=== PATIENT | female | born 1940 | race Caucasian/White ===

== ENCOUNTER → 2021-02-03 | Day surgery (SDC) | payer MEDICARE, BC ==
[2021-01-27 14:53] LABS: BASOPHILS # (AUTO) 0.1 X10'3 (0-0.2); BASOPHILS % (AUTO) 0.8 % (0-1); EOSINOPHILS # (AUTO) 0.2 X10'3 (0-0.9); EOSINOPHILS % (AUTO) 3.7 % (0-6); LYMPHOCYTES % (AUTO) 30.9 % (21-51); MEAN CORPUSCULAR HEMOGLOBIN 29.8 PG (27.0-31.0); MEAN CORPUSCULAR HGB CONC 34.3 g/dL (33.0-36.5); MEAN CORPUSCULAR VOLUME 86.9 FL (78-98); MEAN PLATELET VOLUME 8.2 FL (7.4-10.4); MONOCYTES # (AUTO) 0.6 X10'3 (0-0.9); MONOCYTES % (AUTO) 8.5 % (2-12); NEUTROPHILS # (AUTO) 3.7 X10'3 (1.8-7.7); NEUTROPHILS % (AUTO) 56.1 % (42-75); PRE OP HEMATOCRIT 42.2 % (35.0-45.0); PRE OP HEMOGLOBIN 14.5 g/dL (12.0-16.0); PRE OP PLATELET COUNT 237 X10'3 (140-440); RED BLOOD COUNT 4.86 X10'6 (4.20-5.60)
[2021-01-27 15:09] LABS: ALBUMIN 3.9 G/DL (3.4-5.0); ALBUMIN/GLOBULIN RATIO 1.2 (1.1-1.5); ALKALINE PHOSPHATASE 56 IU/L (46-116); BLOOD UREA NITROGEN 11 MG/DL (7-18); BUN/CREATININE RATIO 11.8 (6.6-38.0); CHLORIDE 108 MMOL/L (99-107); CREATININE 0.93 MG/DL (0.40-0.90); PRE OP ALT 24 U/L (30-65); PRE OP ANION GAP 12 (8-16); PRE OP AST 11 U/L (10-37); PRE OP BILIRUB, TOTAL 0.5 MG/DL (0.0-1.0); PRE OP GLUCOSE 197 MG/DL (70-104); PRE OP POTASSIUM 3.9 MMOL/L (3.4-5.1); PRE OP SODIUM 145 MMOL/L (135-145); TOTAL CARBON DIOXIDE 25.5 MMOL/L (24-32); TOTAL PROTEIN 7.2 G/DL (6.4-8.2); eGFR 58 ML/MIN
[~2021-02-03] VITALS: Ht 165.1 cm; Wt 80.6 kg
[~2021-02-03] MED LIST: BIOT5000 PO; BUPIVAcaine/PF 2.5mg/ml (0.25%) 10ml vial ONE; CHOL500049 PO; CINN500C15 PO; FLAX10007 PO; GING550C4 PO; GLIM2TAB6 PO; GLUC-95 PO; METF-438 PO; MV-M1CAP15 PO; NIAC500C12; OMEP-50 PO; PRAS25CA PO; RED600CA2 PO; SELE200C PO; [UNRECOGNIZED DRUG - CODE] PO; [UNRECOGNIZED DRUG - OTHER] PO; [UNRECOGNIZED DRUG - OTHER] PO; cefazolin/dext.iso 2gm/100ml IV ONE; famotidine 20mg tablet PO ONE; fentaNYL/PF 50MCG/1 ML 2ML syringe ONE; meperidine/PF 25mg/ml syringe IV PRN; midazolam 1 mg/ML 2ml injection ONE; morphine 2 MG/ML inj. syringe IV PRN; morphine 4 MG/ML inj SYRINge IV PRN; ondansetron/PF 4mg/2ml inj IV PRN; potassium otc PO; proCHLORperazine 10 MG/2 ml inj IV PRN; ringers solution, lacted 1,000 ML IV SCH
[2021-02-03 07:48] VITALS: BP 135/70
[2021-02-03 07:49] VITALS: BP 135/70
[2021-02-03 08:01] VITALS: BP 151/74
--- NOTE | 2021-02-03 08:01 | NUR ---
Received from OR via , accompanied by Anesthesiologist DR CARDONA and report given by Anesthesiolgist. PT PRESENT WITH PIV RIGHT HAND 20G, DRESSING ON RIGHT HAND DRY AND INTACT. VSS. Addendum: 02/03/21 at 0807 by Noemi Posadas RN, RN Amended: Links added.
[2021-02-03 08:10] VITALS: BP 151/83
[2021-02-03 08:20] VITALS: BP 153/83
[2021-02-03 08:31] VITALS: BP 152/85
--- NOTE | 2021-02-03 08:31 | NUR ---
PACU DISCHARGE CRITERIA MET, REPORT GIVEN TO FLOOR. DENIES PAIN OR DISCOMFORT. PT IS STABLE AND ADEQUATELY RECOVERED FROM ANESTHESIA. PT HAS STABLE AIRWAY PATENCY, RESPIRATORY FUNCTION TO INCLUDE RESPIRATORY RATE AND O2 SAT. HEART RATE, BLOOD PRESSURE STABLE AND HYDRATION ADEQUATE. MENTAL STATUS IS APPROPRIATE. PAIN AND NAUSEA CONTROLLED. REFER TO PACU SPREADSHEET FOR VITAL SIGNS. Addendum: 02/03/21 at 0844 by Noemi Posadas RN, RN Amended: Links added.
== END | disposition home or self-care (01) ==
LOC: PAS 05:42
PROVIDERS: ATTEND Orthopaedic Surgery Hand Surgery
DX: G56.02 Carpal tunnel syndrome, left upper limb (principal); M19.90 Unspecified osteoarthritis, unspecified site; E11.9 Type 2 diabetes mellitus without complications; K21.9 Gastro-esophageal reflux disease without esophagitis; Z79.84 Long term (current) use of oral hypoglycemic drugs; Z79.899 Other long term (current) drug therapy; Z98.890 Other specified postprocedural states; Z98.49 Cataract extraction status, unspecified eye; Z91.040 Latex allergy status
CPT/HCPCS: 36415; 64721; 80053; 82948; 85025; 93005; J2250; J3010; J3490; A4215; J7120

== ENCOUNTER 2022-02-05 11:01 | Day surgery (SDC) | payer BC, MEDICARE ==
[~2022-02-05] VITALS: Ht 165.1 cm; Wt 79.5 kg
[~2022-02-05 11:01] MED LIST changes: -BUPIVAcaine/PF 2.5mg/ml (0.25%) 10ml vial ONE; -OMEP-50 PO; +OMEP20CA16 PO; -cefazolin/dext.iso 2gm/100ml IV ONE; -famotidine 20mg tablet PO ONE; -fentaNYL/PF 50MCG/1 ML 2ML syringe ONE; -meperidine/PF 25mg/ml syringe IV PRN; -midazolam 1 mg/ML 2ml injection ONE; -morphine 2 MG/ML inj. syringe IV PRN; -morphine 4 MG/ML inj SYRINge IV PRN; -ondansetron/PF 4mg/2ml inj IV PRN; -proCHLORperazine 10 MG/2 ml inj IV PRN; -ringers solution, lacted 1,000 ML IV SCH
[2022-02-05] MEDS ORDERED: LIDOcaine 1% 30ml preserv. free vial SQ STA (11:27)
[2022-02-05 11:49] VITALS: BP 99/62
[2022-02-05 13:30] VITALS: BP 121/69
[2022-02-05 13:52] VITALS: BP 121/69
== END 2022-02-05 13:52 | disposition home or self-care (01) ==
LOC: SSTAY O 11:01
PROVIDERS: ATTEND Radiology Vascular & Interventional Radiology
DX: R16.0 Hepatomegaly, not elsewhere classified (principal)
CPT/HCPCS: 20206; 76942; 88305

== ENCOUNTER 2024-12-09 14:59 | Inpatient (IN) | payer MEDICARE, BC ==
[~2024-12-09] VITALS: Ht 165.1 cm; Wt 79.5 kg
[~2024-12-09 14:59] MED LIST changes: -PRAS25CA PO; +PRAS25CA8 PO; -SELE200C PO
--- NOTE | 2024-12-09 15:12 | Physician Documentation ---
History of Present Illness ~ Stated Complaint: CP Time Seen by MD: 15:11 OK to notify your PCP?: Yes Source: patient, RN/MD, EMS, RN notes reviewed, EMS notes reviewed, old records Mode of Arrival: EMS Exam Limitations: no limitations HPI Navneet is an 84 year olf female who presents to the emergency department via EMS from [facility] due to a syncopal episodes she had been experiencing. HPI from the clinic: Jodi, an 84 year old female with a history of diabetes, presents to the clinic with pain and shortness of breath that began this morning. She also reports intermittent issues with syncope. The patient describes her episodes where she stands up, passes out for a second, then regains consciousness. Her chest pain and heaviness has been coming and going since this morning. She reports feeling overall unwell for the last week but denies any active chest pain or heaviness at the time of presentation. The patient has not experienced nausea, vomiting, or reduced urinary output. She also denies any fevers or dysuria. Upon arrival at the clinic, the patient was given 324 milligrams of chewable aspirin. She had not taken any aspirin earlier in the day. Blood pressure measurements showed a variance between arms with the left arm reading 154/79 and the right arm 134/80. However, the patient denied any radiating pain or severe symptoms. Despite her current symptoms, the patient described feeling overall healthy for her age. Medication Reconciliation Allergies: Coded Allergies: latex (Verified Allergy, Unknown, 02/02/21) Scheduled Biotin (Biotin), 1 TAB PO TID, (Reported) Cholecalciferol (Vitamin D3) (Vitamin D3), 1,000 MCG PO DAILY, (Reported) Cinnamon Bark (Cinnamon), Unknown Dose PO DAILY, (Reported) Flaxseed (Flaxseed Oil), 1 CAP PO DAILY, (Reported) Irma Root (Irma Root), 3 TAB PO DAILY, (Reported) Glimepiride (Glimepiride), 1 TAB PO DAILY, (Reported) Glucosamine HCl/Chondr Valladares A Na (Cidaflex Tablet), Unknown Dose PO DAILY, (Reported) L.acidop,Rebel,Lac,Rha/B.lac,Dontrell (Advanced Probiotic Capsule), 1 TAB PO DAILY, (Re ported) Metformin HCl (Metformin HCl), 1 TAB PO BID, (Reported) Niacin* (Niacin Timed Release*), 300 MG DAILY, (Reported) Omeprazole (Omeprazole), 1 CAP PO DAILY, (Reported) Prasterone (Dhea) (Dhea), Unknown Dose PO DAILY, (Reported) Red Yeast Rice (Red Yeast Rice), Unknown Dose PO DAILY, (Reported) [foccus factor], 3 TAB PO DAILY, (Reported) [potassium otc], 1 TAB PO DAILY, (Reported) Miscellaneous Medications Ascorbic Acid (Vitamin C With Jayde Hips), 3 TAB PO, (Reported) Discontinued Medications Mv-Mn/FA/Vit K/Lycop/Lut/Coq10 (Daily Multivitamin Capsule), 1 CAP PO DAILY, (Reported) Discontinued Reason: patient no longer taking Past Medical History Past Medical History: Diabetes, Osteoarthritis, Anxiety Review of Systems All Other Systems at this time: Reviewed and Negative ROS As stated above in the HPI, otherwise all systems are reviewed and negative. Physical Exam Vital Signs: RN Vital Signs have been reviewed: Yes Pulse Oximetry Reflects: adequate oxygenation Physical Exam General: The patient is well developed, well nourished, nontoxic appearing and is in no acute distress. Skin: [place], warm and dry with no rashes. HEENT: Head was normocephalic and atraumatic. Eyes - pupils equal, round, reactive to light and accommodation. Extraocular movements were intact. Conjunctivae were nonicteric. Ears - bilateral tympanic membranes were normal. The mouth and oropharynx were clear with moist mucous membranes. There were no pharyngeal exudates or erythema. Neck: Supple and nontender. There was no jugular venous distention, lymphadenopathy, thyromegaly or masses. Chest: Clear to auscultation bilaterally without wheezes, rales or rhonchi. No accessory muscle use. No dullness to percussion. Heart: Rate regular and rhythmic. S1, S2. No murmurs. Palpation of the chest wall was normal. No rubs or thrills. Abdomen: Soft, nontender and nondistended. Positive bowel sounds. No guarding or rebound. No hepatosplenomegaly or palpable masses. Extremities: No cyanosis, clubbing or edema. The patient moves all extremities. Pulses were equal and symmetric. Neurologic: Cranial nerves II-XII were intact. Sensation was intact to light touch throughout. Motor strength was 5/5 in all four extremities. Deep tendon reflexes were intact in both upper and lower extremities. Psychologic: The patient was oriented to person, place and time. The patient demonstrated appropriate judgement and insight. Progress Progress Note 1721: The case was discussed with the hospitalist who was informed on the patients case and kindly agreed to admit them to the hospital. Results/Orders Reviewed/noted all lab results: Yes Results/Orders Orders - YAZMIN MELISSA MD Chest,Single View (12/09/24 15:13) Monitor (12/09/24 15:13) Oxygen (12/09/24 15:13) Saline Lock (12/09/24 15:13) Electrocardiogram (12/09/24 15:13) Cult Urine + [address] (12/09/24 16:48) Completed Orders - YAZMIN MELISSA MD Cbc/Diff (12/09/24 15:13) MG (12/09/24 15:13) Pt Inr (12/09/24 15:13) PTT (12/09/24 15:13) PBNP (12/09/24 15:13) Chest,Single View (12/09/24 15:13) Nitroglycerin 0.2mg/Hour Patch (Nitro-Du (12/09/24 15:15) Electrocardiogram (12/09/24 15:13) Hs Troponin I W Calculations (12/09/24 15:13) Hs Troponin I W Calculations (12/09/24 18:13) CMP (12/09/24 15:13) Ua W/Microscopic, Cult If Ind (12/09/24 16:08) Hgb A1c (12/09/24 15:25) TSH (12/09/24 15:25) Medications Received in ER Medications (Trade) Dose Ordered Sig/Ector Route PRN Reason Start Time Stop Time Status Last Admin Dose Admin (Nitro-Dur 0.2mg/ hour Patch) 1 patch ONCE ONCE TD 12/09/24 15:15 12/09/24 15:16 DC 12/09/24 15:49 1 PATCH Vital Signs 12/09/24 12/09/24 15:14 15:23 Temp 97.6 Pulse 69 Resp 20 B/P (MAP) 158/97 Pulse Ox 100 O2 Flow Rate 4.0 Laboratory Tests Test 12/09/24 15:25 12/09/24 16:08 White Blood Count 6.7 Red Blood Count 5.13 Hemoglobin 15.0 Hematocrit 44.4 Mean Corpuscular Volume 86.5 Mean Corpuscular Hemoglobin 29.1 Mean Corpuscular Hemoglobin Concent 33.7 Red Cell Distribution Width 13.5 Platelet Count 232 Mean Platelet Volume 8.4 Neutrophils (%) (Auto) 62.3 Lymphocytes (%) (Auto) 24.7 Monocytes (%) (Auto) 7.6 Eosinophils (%) (Auto) 4.3 Basophils (%) (Auto) 1.1 H Neutrophils # (Auto) 4.2 Lymphocytes # (Auto) 1.7 Monocytes # (Auto) 0.5 Eosinophils # (Auto) 0.3 Basophils # (Auto) 0.1 CBC Comment Prothrombin Time 10.6 INR International Normalized Ratio 1.0 Activated Partial Thromboplast Time 25 Coagulation Comments Sodium Level 144 Potassium Level 3.6 Chloride Level 107 Carbon Dioxide Level 26.5 Anion Gap 11 Blood Urea Nitrogen 10 Creatinine 0.83 Estimated GFR/1.73 m2 65 BUN/Creatinine Ratio 12.0 Glucose Level 144 H Hemoglobin A1c 6.4 H Calcium Level 9.5 Magnesium Level 2.2 Total Bilirubin 0.6 Aspartate Amino Transf (AST/SGOT) 12 Alanine Aminotransferase (ALT/SGPT) 28 Alkaline Phosphatase 63 Troponin I High Sensitivity 7 Pro-B-Type Natriuretic Peptide 116 Total Protein 7.5 Albumin 4.3 Globulin 3.2 Albumin/Globulin Ratio 1.3 Thyroid Stimulating Hormone (TSH) 1.92 Chemistry Comments Urine Specimen Description Cln catch midstream Urine Color Yellow Urine Clarity Cloudy Urine pH 6.0 Urine Specific [place] <=1.005 Urine Protein Negative Urine Glucose (UA) Negative Urine Ketones Negative Urine Occult Blood Trace-intact Urine Nitrite Negative Urine Bilirubin Negative Urine Urobilinogen 0.2 Urine Leukocyte Esterase Moderate H Urine RBC 0-2 Urine WBC 10-20 H Urine WBC Clumps Few Urine Squamous Epithelial Cells Few Urine Bacteria 4+ Urine Culture Indicated Indicated Volume Urine Centrifuged 10 ml Urine Comment Microbiology Date/Time Source Procedure Growth Status 12/09/24 16:48 Urine Clean Catch Midstream Urine Culture - Preliminary Culture received. Resulted Re-Evaluation Re-Evaluation : Re-Evaluation: Improved Progress Patient was seen and examined. Patient is given reassurance. The patient was transferred from a clinic in [facility] because she was having episodes of syncope questionable EKG with a delta wave concern for WPW. Patient also has not been complaining of chest pain until today patient received an aspirin in her symptoms resolved. Patient denies any PND orthopnea denies any exercise intolerance as of late. However patient now had chest pain today so her symptoms seemed to be worsening. Patient was then transferred to our facility for cardiac evaluation. EKG was reassuring but a questionable delta wave in lead two. Otherwise EKG was reassuring CBC was within normal limits no anemia no leukocytosis chemistry was also reassuring with a slight elevated glucose level of 144. Hemoglobin a one C6.4 otherwise chemistry LFTs troponins are all within normal limits including TSH. However urinalysis did show infection with a specific gravity of 1.005 with moderate leukocyte esterase, RBCs 0-2 WBCs 10- 20 with few epithelial cells and WBC clumps with 4+ bacteria. Patient was then given antibiotics but for her initial presentation she received nitroglycerin to her chest wall patient already had aspirin prior to arrival by EMS. Later I contacted the hospitalist for further workup and care both for the urinary tract infection as well as her cardiac symptoms. Continuous leak patcher interpretation shows normal sinus rhythm heart rate 60s, no ectopy, normal, my interpretation. Pulse oximetry monitor interpretation shows normal oxygenation 98% room air, normal, my interpretation. EKG/XRAY/CT/US/VASC/MRI EKG : Additional Comment [facility] Test Date: 2024-12-09 Test Time: 15:17:31 Pat Name: SHAHAB BURGOS Department: EMERGENCY ROOM Room: Gender: F Knee Bolter: PM : 1940 Requested By: YAZMIN MELISSA Order Number: [id number] Reading MD: Dr. Yazmin Melissa Measurements Intervals [place] Rate: 68 P: 38 NV: 180 QRS: -59 QRSD: 104 T: 56 QT: 451 QTc: 480 Interpretive Statements Sinus rhythm Left anterior fascicular block Abnormal R-wave progression, early transition Electronically Signed On 12-09-2024 16:26:[address] Yazmin Melissa Please click the below link to view image of tracing. EKG Date and Time:12/09/24 1517 Electronically Signed by: YAZMIN MELISSA MD Date and Time: 12/09/24 1626 Chest X-Ray : Additional Comments EXAM: DI CHEST,SINGLE VIEW HISTORY: CHEST PAIN COMPARISON: None TECHNIQUE: Portable upright AP views of the chest were performed. FINDINGS: No pneumothorax, consolidative infiltrates, or pulmonary edema. The heart is borderline enlarged. There is thoracic spondylosis and mild dextroscoliosis. There are calcifications of the bilateral rotator cuff tendons near the insertion. IMPRESSION: No acute intrathoracic process. Electronically Signed by:BREANNA MEZA MD Date & Time: 12/09/24 154 Dictated by: BREANNA MEZA MD Dictation date and time: 12/09/24 1538 Heart Score: Heart Score Response (Comments) Value History Highly Suspicious [address]-Deviation 2 Age 45-64 1 Risk Factors 1 or 2 risk factors 1 Troponin Normal limit 0 Total 6 Medical Decision Making Additional info obtained from: old records Differential Dx:Considerations: Include: anemia, CVA, dehydration, electrolyte disorder, encephalopathy, hypoglycemia, hypovolemia, labyrinthitis, Meniere's disease, myocardial infarction, pulmonary embolus, TIA, vasovagal, VBI, vertigo central, vertigo peripheral, vestibular neuronitis, other Departure Disposition: ADMITTED INPATIENT Admitted to Inpatient Unit: yes, to hospitalist Admission Level of Care: PCU with Tele Impression: Primary Impression: Syncope Qualified Codes: R55 - Syncope and collapse Additional Impressions: Unstable angina UTI (urinary tract infection) Qualified Codes: N30.00 - Acute cystitis without hematuria Condition: Guarded Referrals: NO PRIMARY CARE PROVIDER (PCP) Education Educated: Patient Educated regarding: diagnosis, treatment, prognosis, need for follow up Signature Scribe Signature: Scribed for Yazmin Melissa MD by Lencho Chang . 12/09/24 15:24 Attestation: The note accurately reflects work and decisions made by me.Yazmin Melissa MD 12/09/24 15:12 YAZMIN MELISSA MD December 09, 2024 15:12 LENCHO URIOSTEGUI December 09, 2024 15:24
--- NOTE | 2024-12-09 15:19 | ELECTROCARDIOGRAPH REPORT ---
[facility] Test Date: 2024-12-09 Test Time: 15:17:31 Pat Name: SHAHAB BURGOS Department: EMERGENCY ROOM [id number] Room: Gender: F Vb Developer: PM : 1940 Requested By: YAZMIN SMITH Order Number: [id number] Reading MD: Dr. Yazmin Smith Measurements Intervals [place] Rate: 68 P: 38 NC: 180 QRS: -59 QRSD: 104 T: 56 QT: 451 QTc: 480 Interpretive Statements Sinus rhythm Left anterior fascicular block Abnormal R-wave progression, early transition Electronically Signed On 12-09-2024 16:26:[address] Yazmin Smith Please click the below link to view image of tracing.
[2024-12-09 15:39] LABS: BASOPHILS # (AUTO) 0.1 X10'3 (0-0.2); BASOPHILS % (AUTO) 1.1 % (0-1); EOSINOPHILS # (AUTO) 0.3 X10'3 (0-0.9); EOSINOPHILS % (AUTO) 4.3 % (0-6); HEMATOCRIT 44.4 % (35.0-45.0); LYMPHOCYTES # (AUTO) 1.7 X10'3 (1.1-4.8); LYMPHOCYTES % (AUTO) 24.7 % (21-51); MEAN CORPUSCULAR HEMOGLOBIN 29.1 PG (27.0-31.0); MEAN CORPUSCULAR HGB CONC 33.7 g/dL (33.0-36.5); MEAN CORPUSCULAR VOLUME 86.5 FL (78-98); MEAN PLATELET VOLUME 8.4 FL (7.4-10.4); MONOCYTES # (AUTO) 0.5 X10'3 (0-0.9); MONOCYTES % (AUTO) 7.6 % (2-12); NEUTROPHILS # (AUTO) 4.2 X10'3 (1.8-7.7); NEUTROPHILS % (AUTO) 62.3 % (42-75); PLATELET COUNT 232 X10'3 (140-440); RED BLOOD COUNT 5.13 X10'6 (4.20-5.60); RED CELL DISTRIBUTION WIDTH 13.5 % (11.5-14.5); WHITE BLOOD COUNT 6.7 X10'3 (4.5-11.0)
[2024-12-09] MEDS: nitroGLYCERIN 0.2mg/hour patch TD ONE (15:49)
--- NOTE | 2024-12-09 15:50 | RADIOLOGY REPORT ---
EXAM: DI CHEST,SINGLE VIEW HISTORY: CHEST PAIN COMPARISON: None TECHNIQUE: Portable upright AP views of the chest were performed. FINDINGS: No pneumothorax, consolidative infiltrates, or pulmonary edema. The heart is borderline enlarged. The re is thoracic spondylosis and mild dextroscoliosis. There are calcifications of the bilateral rotato r cuff tendons near the insertion. IMPRESSION: No acute intrathoracic process.
[2024-12-09 15:52] LABS: APTT 25 SECONDS (22-32); PROTHROMBIN TIME 10.6 SECONDS (9.0-12.0)
[2024-12-09 16:05] LABS: GLUCOSE 144 MG/DL (70-104)
[2024-12-09 16:06] LABS: ALANINE AMINOTRANSFERASE 28 U/L (12-78); ALBUMIN 4.3 G/DL (3.4-5.0); ALBUMIN/GLOBULIN RATIO 1.3 (1.1-1.5); ALKALINE PHOSPHATASE 63 IU/L (46-116); ANION GAP 11 (8-16); ASPARTATE AMINO TRANSFERASE 12 U/L (10-37); BILIRUBIN,TOTAL 0.6 MG/DL (0.1-1.0); BLOOD UREA NITROGEN 10 MG/DL (7-18); CALCIUM 9.5 MG/DL (8.5-10.1); CHLORIDE 107 MMOL/L (99-107); CREATININE 0.83 MG/DL (0.40-0.90); MAGNESIUM 2.2 MG/DL (1.5-2.4); POTASSIUM 3.6 MMOL/L (3.5-5.1); PRO BRAIN NATRIURETIC PEPTIDE 116 PG/ML (0-450); SODIUM 144 MMOL/L (135-145); TOTAL CARBON DIOXIDE 26.5 MMOL/L (24-32); TOTAL PROTEIN 7.5 G/DL (6.4-8.2); eCRCL 45 ML/MIN; eGFR 65 ML/MIN
[2024-12-09 16:26] LABS: BILIRUBIN,URINE NEGATIVE (Neg); CLARITY,URINE CLOUDY (Clear); COLOR,URINE YELLOW (Yellow); GLUCOSE, URINE NEGATIVE (Neg); KETONES,URINE NEGATIVE (Neg); LEUKOCYTE ESTERASE ,URINE MODERATE (Neg); OCCULT BLOOD,URINE TRACE-INTACT (Neg); PROTEIN,URINE NEGATIVE (Neg); UROBILINOGEN,URINE 0.2 E.U/dL (0.2-1.0)
[2024-12-09 16:42] LABS: NITRITES, URINE NEGATIVE (Neg); UA COLLECTION TYPE CLN CATCH MIDSTREAM
[2024-12-09 16:47] LABS: BACTERIA,URINE 4+ /HPF (Neg); RBC,URINE 0-2 /HPF (0-2); SQUAMOUS EPITHELIAL CELL,UR FEW /LPF (FEW); WBC CLUMPS,URINE FEW /HPF (NEGATIVE)
--- NOTE | 2024-12-09 17:04 | HISTORY AND PHYSICAL ---
History & Physical Providers to CC ~ History of Present Illness Allergies: Coded Allergies: latex (Verified Allergy, Unknown, 02/02/21) Home Medications Home Medications Active Reported [potassium otc] 1 Tab PO DAILY Advanced Probiotic Capsule (L.acidop,Rebel,Lac,Rha/B.lac,Dontrell) 625 Mg Capsule 1 Tab PO DAILY Vitamin C With Jayde Hips (Ascorbic Acid) 250 Mg Tablet 3 Tab PO [foccus factor] 3 Tab PO DAILY Dhea (Prasterone (Dhea)) Unknown Strength Capsule Unknown Dose PO DAILY Cinnamon (Cinnamon Bark) Unknown Strength Capsule Unknown Dose PO DAILY Irma Root 550 Mg Capsule 3 Tab PO DAILY Red Yeast Rice Unknown Strength Capsule Unknown Dose PO DAILY Flaxseed Oil (Flaxseed) 1,000 Mg Capsule 1 Cap PO DAILY Vitamin D3 (Cholecalciferol (Vitamin D3)) 1,250 Mcg Capsule 1,000 Mcg PO DAILY Niacin Timed Release* (Niacin) 500 Mg Capsule 300 Mg DAILY Cidaflex Tablet (Glucosamine HCl/Chondr Valladares A Na) Unknown Strength Tablet Unknown Dose PO DAILY Biotin 5,000 Mcg Tab.rapdis 1 Tab PO TID Metformin HCl 1,000 Mg Tablet 1 Tab PO BID Omeprazole 20 Mg Capsule.dr 1 Cap PO DAILY Glimepiride 2 Mg Tablet 1 Tab PO DAILY Exam Vitals: Vital Signs Date Time Temp Pulse Resp B/P (MAP) Pulse Ox O2 Delivery O2 Flow Rate FiO2 12/09/24 15:23 12/09/24 15:14 97.6 69 20 100 4.0 Diagnostic Data Last Recorded Lab Results: 12/09/24 1525 12/09/24 1525 Diagnostic Data: Laboratory Tests Test 12/09/24 15:25 Prothrombin Time 10.6 SECONDS (9.0-12.0) INR International Normalized Ratio 1.0 INR Activated Partial Thromboplast Time 25 SECONDS (22-32) Coagulation Comments WOODY OTERO MD December 09, 2024 17:04
[2024-12-09] MEDS ORDERED: potassium Cl 40MEQ/1/2NS 520ml 520 ML IV PRN (17:50)
[2024-12-09] MEDS ORDERED: magnesium Cl slow-release 64mg tablet PO PRN (17:50)
[2024-12-09] MEDS ORDERED: ondansetron/PF 4mg/2ml inj IV PRN (17:50)
[2024-12-09] MEDS ORDERED: magnesium sulf-water 4G/100mL 100 ML IV PRN (17:50)
[2024-12-09] MEDS ORDERED: magnesium hydroxide 30ml (MOM) UD suspension PO PRN (17:50)
[2024-12-09] MEDS ORDERED: magnesium sulf-water 2g/50mL 50 ML IV PRN (17:50)
[2024-12-09] MEDS ORDERED: acetaminophen 325mg tablet PO PRN (17:50)
[2024-12-09] MEDS ORDERED: potassium Cl 20 mEq SR tablet PO PRN ×2 (17:50)
[2024-12-09] MEDS ORDERED: HYDROcodone/acetaminophen 5mg/325mg tablet PO PRN (17:50)
[2024-12-09] MEDS ORDERED: mag hydrox/Alum hydrox/simeth 30ml oral suspension PO PRN (17:50)
[2024-12-09] MEDS ORDERED: morphine 2 MG/ML inj. syringe IV PRN (17:50)
--- NOTE | 2024-12-09 17:59 | HISTORY AND PHYSICAL-Residence ---
History & Physical Providers to CC Resident Creating Document: TERE PATTERSON, RES CC: MINI SANTOYO MD ~ History of Present Illness Primary Medical Doctor: ESTELLE MCCORMICK Reason for Admit\Complaint: Chest pain, dizzy spells History of Present Illness An 84-year-old female with past medical history of type 2 DM presented to the ED with chest pain, dizzy spells and weakness over the last two weeks. Patient states that this morning she started to have substernal chest pain with a severity of 7/10, sharp in character, no radiation, no increase in chest pain with inspiration. Patient went to yoga and could not do her exercise, felt weak and therefore went to the emergency department. This chest pain has been on and off, does not vary with exertion or rest patient denies associated diaphoresis, shortness of breath, palpitations. Patient also had dizziness described as a black out when she stands up since one week, feels like the room is spinning around her, not associated with nausea vomitings, hearing loss, imbalance or headaches. Patient denies loss of consciousness or falls. Patient denies lower abdominal pain, burning micturition, increased frequency of urination. Allergies: Coded Allergies: latex (Verified Allergy, Unknown, 02/02/21) Home Medications Home Medications Active Reported [potassium otc] 1 Tab PO DAILY Advanced Probiotic Capsule (L.acidop,Rebel,Lac,Rha/B.lac,Dontrell) 625 Mg Capsule 1 Tab PO DAILY Vitamin C With Jayde Hips (Ascorbic Acid) 250 Mg Tablet 3 Tab PO [foccus factor] 3 Tab PO DAILY Dhea (Prasterone (Dhea)) Unknown Strength Capsule Unknown Dose PO DAILY Cinnamon (Cinnamon Bark) Unknown Strength Capsule Unknown Dose PO DAILY Irma Root 550 Mg Capsule 3 Tab PO DAILY Red Yeast Rice Unknown Strength Capsule Unknown Dose PO DAILY Flaxseed Oil (Flaxseed) 1,000 Mg Capsule 1 Cap PO DAILY Vitamin D3 (Cholecalciferol (Vitamin D3)) 1,250 Mcg Capsule 1,000 Mcg PO DAILY Niacin Timed Release* (Niacin) 500 Mg Capsule 300 Mg DAILY Cidaflex Tablet (Glucosamine HCl/Chondr Valladares A Na) Unknown Strength Tablet Unknown Dose PO DAILY Biotin 5,000 Mcg Tab.rapdis 1 Tab PO TID Metformin HCl 1,000 Mg Tablet 1 Tab PO BID Omeprazole 20 Mg Capsule.dr 1 Cap PO DAILY Glimepiride 2 Mg Tablet 1 Tab PO DAILY Past Medical History Past Medical History Type 2 DM Hypothyroidism Past Surgical History Surgical History Comment Appendectomy Tonsillectomy 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 Estelle Proctor (cash application representative) Does not smoke, consume alcohol, marijuana, illicit drugs. Lives at home by herself, uses cane to move around ROS ROS All systems reviewed in full, negative except for the pertinent positives mentioned in the HPI Exam Vitals: Vital Signs Date Time Temp Pulse Resp B/P (MAP) Pulse Ox O2 Delivery O2 Flow Rate FiO2 12/09/24 15:23 12/09/24 15:14 97.6 69 20 100 4.0 General: General: Alert, awake, oriented, not in acute distress HEENT: PERRLA, EOMI, no icterus, pallor, lymphadenopathy, carotid bruit Respiratory system: Bilateral vesicular breath sounds heard, no adventitious breath sounds CVS: S1-S2 heard, no murmurs/rubs/gallop GI: Soft, nontender, no organomegaly, no guarding/rigidity, bowel sounds present Neuro: No focal neurological deficits present Extremities: No edema cyanosis clubbing Musculoskeletal: No deformities Skin: Warm and dry Diagnostic Data Last Recorded Lab Results: 12/09/24 1525 12/09/24 1525 Diagnostic Data: Laboratory Tests Test 12/09/24 15:25 Prothrombin Time 10.6 SECONDS (9.0-12.0) INR International Normalized Ratio 1.0 INR Activated Partial Thromboplast Time 25 SECONDS (22-32) Coagulation Comments Advance Care Planning Advanced Care plannin - 30 Minutes (I spent 20 minutes discussing various resuscitative measures and the patient decided to be full code) Additional Plan Assessment: An 84-year-old female with past medical history of type 2 DM presented to the ED with on and off chest pain, dizzy spells and weakness. Patient is admitted for the evaluation and management of unstable angina, syncope/dizzy spells, UTI. Plan: Chest pain Possible unstable angina ACS, rule out Zzuxj-Tonnsacms-Vvliy syndrome, ruled out HEART score: 4 EKG: Sinus rhythm, left axis deviation, delta waves Negative troponinsy Patient started on aspirin 81 mg Follow up with echo, lipid panel Lexiscan in a.m. We will consult Cardiology in a.m. Syncope, under evaluation Dizzy spells Follow up with orthostatic vitals, CT head Continue to monitor telemetry UTI Urinalysis positive for leukocyte esterase Rocephin 1 g day 07/28 Follow up with urine cultures Type 2 DM Follow up with the A1c Low-dose sliding scale insulin Hypothyroidism Status post partial thyroidectomy Follow up with TSH Not on any home meds Code status: Full code Diet: 75 g carb controlled diet DVT prophylaxis: Heparin Disposition: Admit to neuro, Lexiscan in a.m. Tere Patterson MD Internal Medicine, PGY 1 Date of Service: December 09, 2024 Billing Provider: MINI SANTOYO MD, SIVA, RES December 09, 2024 17:59
[2024-12-09] MEDS ORDERED: aminophylline 250mg/10ml inj. IV PRN (18:05)
[2024-12-09] MEDS ORDERED: metoprolol tartrate 1mg/ml inj IV PRN (18:05)
[2024-12-09] MEDS ORDERED: nitroGLYCERIN 0.4mg SUBLingual tab SL PRN (18:05)
[2024-12-09] MEDS: PERFLUTREN PROTEIN-A MICROSPHR (Optison) 0.22 MG/ML 3ML VIAL IV ONE (18:06)
[2024-12-09] MEDS ORDERED: DEXTROSE 15 GM of carb/4 tabs (each vial/BOTTLE has 4 tablets) PO PRN ×2 (18:10)
[2024-12-09] MEDS ORDERED: dextrose 50%-water 50ml dispensing syringe IV PRN ×2 (18:10)
[2024-12-09] MEDS ORDERED: glucagon, human recombinant 1mg kit SUBCUT PRN (18:10)
[2024-12-09 18:24] LABS: THYROID STIMULATING HORMONE 1.92 ulU/ml (0.34-4.50)
[2024-12-09 18:33] LABS: HEMOGLOBIN A1C 6.4 % (4.5-6.2)
--- NOTE | 2024-12-09 19:06 | RADIOLOGY REPORT ---
EXAM: CT CT HEAD INDICATION: Syncope EXAM DATE: 12/09/2024 06:41 PM COMPARISON: None TECHNIQUE: CT of the head without intravenous contrast. Radiation Dose Information: CTDI volume is 62.68 mGy. Dose-length product is 1119.66 mGy*cm FINDINGS: There is no evidence of acute intracranial hemorrhage, extra-axial collection, mass effect, midline s hift, herniation or hydrocephalus. The ventricles, sulci and cisterns are age appropriate. The gale-w alonzo differentiation is intact. The visualized paranasal sinuses and mastoid air cells are clear. Dinh ateral hyperostosis frontalis interna. The surrounding soft tissues and osseous structures are unrema rkable. IMPRESSION: 1. No evidence of acute intracranial hemorrhage, mass effect or hydrocephalus.
[2024-12-09] MEDS: docusate sod 100mg capsule PO SCH (20:00)
[2024-12-09] MEDS: K and/or MAG REPLACEMENT MC SCH (20:00)
[2024-12-09] MEDS: INSULIN LISPRO 100 UNIT/ML INSULN.PEN MULTI-DOSE SQ SCH (21:00)
[2024-12-09] MEDS: CefTRIAXone 2gm/D5W 50ml BAG 50 ML IV ONE (21:29)
[2024-12-09] MEDS: heparin, porcine 5000 units/ml vial SQ SCH (21:33)
[2024-12-09 22:00] VITALS: BP 165/78; PULSE 83; RESP 16; TEMP 97.6
[2024-12-09 22:30] VITALS: BP_SYST 150; BP_SYST 159; BP_SYST 173; BP_DIAS 75; BP_DIAS 86; PULSE 107; PULSE 110
[2024-12-10] VITALS (13 sets, daily range): BP systolic 108–168; BP diastolic 56–108; PULSE 61–95; RESP 14–18; TEMP 97.1–98.9; O2SAT 96–98
[2024-12-10 04:55] LABS: BASOPHILS # (AUTO) 0.1 X10'3 (0-0.2); BASOPHILS % (AUTO) 1.2 % (0-1); EOSINOPHILS # (AUTO) 0.4 X10'3 (0-0.9); HEMOGLOBIN 13.4 g/dl (12.0-16.0); LYMPHOCYTES # (AUTO) 2.1 X10'3 (1.1-4.8); LYMPHOCYTES % (AUTO) 30.7 % (21-51); MEAN CORPUSCULAR HEMOGLOBIN 29.1 PG (27.0-31.0); MEAN CORPUSCULAR HGB CONC 33.5 g/dL (33.0-36.5); MEAN CORPUSCULAR VOLUME 86.8 FL (78-98); MEAN PLATELET VOLUME 8.2 FL (7.4-10.4); MONOCYTES # (AUTO) 0.7 X10'3 (0-0.9); MONOCYTES % (AUTO) 9.9 % (2-12); NEUTROPHILS # (AUTO) 3.6 X10'3 (1.8-7.7); NEUTROPHILS % (AUTO) 52.2 % (42-75); PLATELET COUNT 226 X10'3 (140-440); RED BLOOD COUNT 4.61 X10'6 (4.20-5.60); RED CELL DISTRIBUTION WIDTH 13.9 % (11.5-14.5); WHITE BLOOD COUNT 6.8 X10'3 (4.5-11.0)
[2024-12-10 05:18] LABS: ALBUMIN 3.6 G/DL (3.4-5.0); ANION GAP 8 (8-16); BLOOD UREA NITROGEN 11 MG/DL (7-18); BUN/CREATININE RATIO 12.6 (10.0-20.0); CHLORIDE 108 MMOL/L (99-107); CHOL/HDL RATIO 2.8 (0.00-4.99); CHOLESTEROL 144 MG/DL (0-200); CREATININE 0.87 MG/DL (0.40-0.90); GLUCOSE 149 MG/DL (70-104); HDL CHOLESTEROL 52 MG/DL (35-60); LDL CHOLESTEROL 78 MG/DL (50-100); MAGNESIUM 2.1 MG/DL (1.5-2.4); POTASSIUM 4.1 MMOL/L (3.5-5.1); SODIUM 144 MMOL/L (135-145); TOTAL CARBON DIOXIDE 27.6 MMOL/L (24-32); TRIGLYCERIDES 99 MG/DL (20-135); eCRCL 43 ML/MIN; eGFR 62 ML/MIN
--- NOTE | 2024-12-10 07:13 | ELECTROCARDIOGRAPH REPORT ---
[facility] Test Date: 2024-12-10 Test Time: 07:08:59 Pat Name: SHAHAB BURGOS Department: ORTHO 4S Room: ORTHO [facility] B Gender: F Physiatrist: Noemi Freeman : 1940 Requested By: TERE OLSEN Order Number: [id number] Reading MD: Dr. MISSY Alatorre Measurements Intervals [place] Rate: 69 P: -4 TN: 176 QRS: -55 QRSD: 90 T: 11 QT: 400 QTc: 429 Interpretive Statements Sinus rhythm Left anterior fascicular block Abnormal R-wave progression, early transition Borderline T abnormalities, inferior leads Electronically Signed On 12-10-2024 19:47:[address] MISSY Alatorre Please click the below link to view image of tracing.
[2024-12-10] MEDS ORDERED: aminophylline 500mg/20ml vial ONE (09:03)
[2024-12-10] MEDS ORDERED: aminophylline 500mg/20ml vial IV PRN (09:04)
[2024-12-10] MEDS: regadenoson 0.4mg/5ml syringe IV PRN (09:16)
[2024-12-10] MEDS: aspirin 81mg, enteric-coated 1 TAB TABLET.DR PO SCH (10:17)
[2024-12-10] MEDS: CefTRIAXone/D5W-Rocephin 1gm 50 ML IV SCH (10:42)
[2024-12-10] MEDS: normal saline 1000ml 1,000 ML IV SCH (12:40)
--- NOTE | 2024-12-10 13:34 | RADIOLOGY REPORT ---
Reason for study/Clinical History: Chest pain Comparison Study: None Myocardial Perfusion Study with SPECT Technique: The patient received an intravenous injection of 8.2 mCi of technetium-99m Sestamibi whi dusty at rest. After a short delay, SPECT tomographic images of the heart were obtained. The patient jerrell levine went to the stress lab where they received an intravenous Lexiscan utilizing standard protocol. 33.4 mCi of technetium-99m Sestamibi was injected intravenously immediately after the start of the infusion. Gated SPECT tomographic images of the heart were acquired and processed. Findings: Rotating planar images show no significant attenuation artifact. The left ventricular size is within normal limits. Stress tomographic images demonstrate normal perfusion. Resting tomographic images demonstrate a similar pattern. Gated portion of the study shows normal wall motion and myocardial thickening. The left ventricular ejection fraction is 71%. (normal greater than 50%) Impression: Normal left ventricular size, wall motion, and function, without evidence of infarction or of myocard ium at ischemic risk. The left ventricular ejection fraction is 71%.
[2024-12-10] MEDS ORDERED: iohexol 350MG/ML 100ml bottle IV ONE (13:35)
[2024-12-10] MEDS: meclizine 12.5mg tablet PO SCH (14:07)
--- NOTE | 2024-12-10 15:18 | CONSULTATION REPORT ---
History of Present Illness Providers to CC CC: AMITA MCCORMICK REGISTERED NURSES; TOÑO CAMPBELL MD ~ Reason for Admit\Admit Dx: CARDIOLOGY CONSULTATION Refering MD: Hospitalist service History of Present Illness This is a 84-year-old female who presented secondary to chest pain. Patient has a past medical history that is significant for diabetes type 2 reports under good control, hyperlipidemia, thyroid disease after partial parathyroidectomy. She presented with left-sided chest pain described as sharp. Patient able to pinpoint the pain to her left chest with one finger. No associated shortness for breath, diaphoresis. She reports overall feeling puny and fatigued. She states that her thyroid dysfunction workup has been pending and her referral to Endocrinology has also been pending. She reports intermittent dizziness and is being worked up for vertigo. She reports during yoga she felt increasing fatigue so she laid down. Thinks she may have fell in asleep but people around her were concerned that she had a syncopal episode. Allergies: Coded Allergies: latex (Verified Allergy, Unknown, 02/02/21) Home Medications Home Medications Active Reported [potassium otc] 1 Tab PO DAILY Advanced Probiotic Capsule (L.acidop,Rebel,Lac,Rha/B.lac,Dontrell) 625 Mg Capsule 1 Tab PO DAILY Vitamin C With Jayde Hips (Ascorbic Acid) 250 Mg Tablet 3 Tab PO [foccus factor] 3 Tab PO DAILY Dhea (Prasterone (Dhea)) Unknown Strength Capsule Unknown Dose PO DAILY Cinnamon (Cinnamon Bark) Unknown Strength Capsule Unknown Dose PO DAILY Irma Root 550 Mg Capsule 3 Tab PO DAILY Red Yeast Rice Unknown Strength Capsule Unknown Dose PO DAILY Flaxseed Oil (Flaxseed) 1,000 Mg Capsule 1 Cap PO DAILY Vitamin D3 (Cholecalciferol (Vitamin D3)) 1,250 Mcg Capsule 1,000 Mcg PO DAILY Niacin Timed Release* (Niacin) 500 Mg Capsule 300 Mg DAILY Cidaflex Tablet (Glucosamine HCl/Chondr Valladares A Na) Unknown Strength Tablet Unknown Dose PO DAILY Biotin 5,000 Mcg Tab.rapdis 1 Tab PO TID Metformin HCl 1,000 Mg Tablet 1 Tab PO BID Omeprazole 20 Mg Capsule. 1 Cap PO DAILY Glimepiride 2 Mg Tablet 1 Tab PO DAILY Past Medical History Medical History Comment Diabetes mellitus type 2 Hyperlipidemia Thyroid dysfunction Past Surgical History Surgical History Comment Tonsillectomy Appendectomy Orthopedic Left carpal tunnel Cataracts Partial thyroid Past Social History Social History Comment No smoking. No recreational drugs. Retired. Exercises by doing yoga. Physical Exam Last Vital Signs Recorded: RN Vital Signs have been reviewed: Yes, Temperature: 97.1, Source: Oral, Heart Rate: 68, Respiratory Rate: 14, BP: 144/75, Pulse Oximetry: 97, Weight: 79.550 Physical Exam General: Awake, alert, oriented. No apparent distress Neck: Supple. Normal range of motion. No JVD. No carotid bruit. Respiratory: Lungs are clear to auscultation bilaterally. No respiratory distress. Chest: Normal shape and size. No accessory muscle use. Cardiovascular: Regular rate and rhythm. S1-S2. No murmur, gallop, rub. Gastrointestinal: Abdomen is soft. Nontender to palpation. Bowel sounds present. Extremities: No lower extremity edema, cyanosis or clubbing. Neurologic: Alert and oriented x4. Nonfocal Psychiatric: Normal mood and affect. Skin: Normal color. Warm and dry. Review of Systems ROS Patient complains of chest pain, dizziness, fatigue. Furthermore, complains of dry skin, hair falling out and brittle nails. Otherwise, review of systems negative except specifically documented in HPI. Results EKG EKG Sinus rhythm with left anterior fascicular block. Left axis deviation. Poor R- wave progression. Echocardiogram Echocardiogram Preliminary echocardiogram with preserved LVEF and no wall motion abnormalities. Cardiac Stress Test Cardiac Stress Test Ordering Physician: TERE OLSEN Exam: NM ALBERTO SCAN Reason for study/Clinical History: Chest pain Comparison Study: None Myocardial Perfusion Study with SPECT Technique: The patient received an intravenous injection of 8.2 mCi of technetium-99m Sestamibi while at rest. After a short delay, SPECT tomographic images of the heart were obtained. The patient then went to the stress lab where they received an intravenous Lexiscan utilizing standard protocol. 33.4 mCi of technetium-99m Sestamibi was injected intravenously immediately after the start of the infusion. Gated SPECT tomographic images of the heart were acquired and processed. Findings: Rotating planar images show no significant attenuation artifact. The left ventricular size is within normal limits. Stress tomographic images demonstrate normal perfusion. Resting tomographic images demonstrate a similar pattern. Gated portion of the study shows normal wall motion and myocardial thickening. The left ventricular ejection fraction is 71%. (normal greater than 50%) Impression: Normal left ventricular size, wall motion, and function, without evidence of infarction or of myocardium at ischemic risk. The left ventricular ejection fraction is 71%. Electronically Signed by:ARMANDO SWARTZ MD Date & Time: 12/10/24 1331 Diagram Lab Result Diagram: 12/10/24 0447 12/10/24 0447 Assessment/Plan Additional Plan This is an 84-year-old female who presented secondary to chest pain. The following is her problem list: Chest pain EKG with nonspecific changes similar to previous Echocardiogram normal Stress test normal High sensitivity troponins normal --suspect musculoskeletal etiology. Recommend further evaluation for noncardiac causes of chest pain. Diabetes mellitus type 2 Hemoglobin A1c 6.4 On metformin as an outpatient. Fatigue Recommend she follow up with her primary care provider with regards to possible thyroid dysfunction. Question of syncope Intermittent dizziness Orthostatic vital signs are negative Patient suspects vertigo -can follow up for an outpatient event monitor. Elevated blood pressure without diagnosis of hypertension --recommend outpatient follow up Supervising Supervising Physician: NELI Hemphill NP December 10, 2024 15:18
--- NOTE | 2024-12-10 16:14 | CARDIOLOGY REPORT ---
APPROVED REPORT EXAM: Comprehensive 2D, Doppler, and color-flow Echocardiogram. Patient Location: [facility] Blood Pressure: 108/56 mmHg Heart Rate: 72 bpm Rhythm: Sinus Indications Coronary Artery Disease Chest Pain Diabetes NEON SIGN WORKER: Elenita Proctor MD Previous Echo Unavailable 2D Dimensions LA Diam2.8 cm IVSd 1.1 (0.7-1.1cm) LVDd 3.4 cm PWd 1.0 (0.7-1.1cm) IVSs 1.7 (0.8-1.2cm) LVDs 2.2 (2.5-4.0cm) PWs 1.5 (0.8-1.2cm) LVOT Diameter 2.06 (1.8-2.4cm) LVEF(%) 66.2 (>50%) Ao Asc Diam.3.29 cm IVC 14.68 mmFS (%) 35.6 % SV 31.6 ml CO 2.4 L/min M-Mode Dimensions Left Atrium(MM) 3.26 (2.5-4.0cm) Aortic Root 3.37 (2.2-3.7cm) Aortic Cusp Exc 1.65 (1.5-2.0cm) MV EPSS 0.8 (<0.5cm) Aortic Valve AoV Peak Siva. 203.7 cm/s AoV VTI 35.4 cm AO Peak GR. 16.6 mmHg AO Mean GR. 9 mmHg LVOT VTI 21.45 cm LVOT Peak Siva. 110.5 cm/s JAIMEE(VTI)/BSA 2.03 cm2/m2 JAIMEE (VTI) 2.03 cm2 Mitral Valve MV E Velocity 75.3 cm/s MV Peak Gr. 3 mmHg MV DECEL TIME 344 ms MV A Velocity 115.5 cm/s MV PHT 68 ms E/A Ratio 0.7 MVA (PHT) 3.24 cm2 MV VMax79.3 cm/s TDI Lateral E' P. V12.94 cm/s E/Lateral E' 5.8 Tricuspid Valve TR P. Velocity 270 cm/s RAP ESTIMATE 10 mmHg TR Peak Gr. 29 mmHg RVSP 39 mmHg LEFT VENTRICLE Normal LV size and wall thickness. Overall systolic function is normal. LVEF is 65-70%. RIGHT VENTRICLE RV is normal size and function. ATRIA The left atrium size is normal. AORTIC VALVE Trileaflet AV appears mildly sclerotic without stenosis. No insufficiency. MITRAL VALVE Mild mitral annular calcification without stenosis. Trace regurgitation. TRICUSPID VALVE The tricuspid valve is normal in structure with mild regurgitation. PULMONIC VALVE The pulmonary valve is normal in structure without insufficiency. GREAT VESSELS The aortic root is normal in size. The ascending aorta is normal in size. The IVC is normal in size a nd collapses >50% with inspiration. PERICARDIUM Normal pericardium. No effusion. Other Information Study Quality: Adequate Conclusion Normal LV size and wall thickness. Overall systolic function is normal. LVEF is 65-70%. RV is normal size and function. The left atrium size is normal. Trileaflet AV appears mildly sclerotic without stenosis. No insufficiency. Mild mitral annular calcification without stenosis. Trace regurgitation. The tricuspid valve is normal in structure with mild regurgitation. Normal pericardium. No effusion.
--- NOTE | 2024-12-10 16:59 | PROGRESS NOTE- Residence ---
Progress Note - Resident Providers to CC Resident Creating Document: TERE OLSEN RES CC: MINI SANTOYO MD ~ Antibiotic Timeout Antibiotic Ordered?: Yes Subjective Patient was examined at bedside. Patient states that she feels much better in terms of chest pain and dizziness. Objective Vital Signs Date Time Temp Pulse Resp B/P (MAP) Pulse Ox O2 Delivery O2 Flow Rate FiO2 12/10/24 10:00 97.1 68 14 144/75 (98) 97 Room Air 12/09/24 15:14 4.0 Result Diagram: 12/10/247 12/10/24 0447 General: Alert, awake, oriented, not in acute distress HEENT: PERRLA, EOMI, no icterus, pallor, lymphadenopathy, carotid bruit, prominent clavicle present. Respiratory system: Bilateral vesicular breath sounds heard, no adventitious breath sounds CVS: S1-S2 heard, no murmurs/rubs/gallop GI: Soft, nontender, no organomegaly, no guarding/rigidity, bowel sounds present Neuro: No focal neurological deficits present Extremities: No edema cyanosis clubbing Musculoskeletal: No deformities Skin: Warm and dry Coagulation Studies Laboratory Tests Test 12/09/24 15:25 Prothrombin Time 10.6 SECONDS (9.0-12.0) INR International Normalized Ratio 1.0 INR Activated Partial Thromboplast Time 25 SECONDS (22-32) Coagulation Comments Assessment Assessment An 84-year-old female with past medical history of type 2 DM presented to the ED with on and off chest pain, dizzy spells and weakness. Patient is admitted for the evaluation and management of unstable angina, syncope/dizzy spells, UTI. Plan Plan Chest pain, possibly noncardiac ACS, ruled out Pgpty-Jigcncvkn-Dvivr syndrome, ruled out HEART score: 4 Discontinue aspirin 81 mg Echo: EF: 65-70%, lipid panel: LDL: 78 Lexiscan does not show any reversible defects. Cardiology recommended outpatient management and thinks it is most likely musculoskeletal. & Outpatient event monitor, appreciate recs. Syncope, under evaluation Most likely secondary to UTI Dizzy spells Vertigo unable to exclude Posterior circulation strokes, rule out Orthostatic vitals negative, CT head ruled out acute intracranial abnormalities Continue to monitor telemetry Urine culture positive for Gram-negative rods Rocephin 1 g day / IV fluids at 100 cc/hour Follow up with CTA head, MRI brain HTN, undiagnosed Continue to monitor vitals Started on losartan 50 mg Patient would benefit from outpatient management Type 2 DM A1c: 6.4 Low-dose sliding scale insulin Hypothyroidism Status post partial thyroidectomy TSH: 1.92 Not on any home meds Code status: Full code Diet: 75 g carb controlled diet DVT prophylaxis: Heparin Disposition: Continue care in neuro, probable discharge tomorrow if workup negative Tere Olsen MD Internal Medicine, PGY 1 Date of Service: December 10, 2024 Billing Provider: MINI SANTOYO MD, SIVA, RES December 10, 2024 16:59
--- NOTE | 2024-12-10 17:44 | RADIOLOGY REPORT ---
EXAM: CT CTA NECK/HEAD HISTORY: Carotid Stenosis in the past COMPARISON: None TECHNIQUE: CTA imaging of the neck and head was performed following the uneventful administration of intravenous contrast. Sagittal and coronal reformatted images were obtained from the source data. 3D /MIP post-processing of the source data set was performed and reviewed by the radiologist. Radiation Dose Information: CT Dose: CTDI volume is 27 mGy. Dose-length product is 1049 mGy*cm All CT scans at this medical facility are performed using dose modulation techniques as appropriate t o a performed exam including the following: Automated exposure control was utilized; adjustment of th e MA and/or KV according to patient size; and use of iterative reconstruction technique. FINDINGS: CTA Neck: Aortic Arch: Conventional branching. Right brachiocephalic artery: Unremarkable. Right carotid artery: Mild atherosclerotic calcification of the carotid bulb with less than 50% steno sis. Right subclavian artery: Unremarkable. Right vertebral artery: Unremarkable. Left carotid artery: Mild atherosclerotic calcification of the carotid bulb with less than 50% stenos is. Left subclavian artery: Unremarkable. Left vertebral artery: Unremarkable. Other: Multilevel degenerative disc disease of the cervical spine noted. CTA Head: [place]: The arteries of [place] are patent, without evidence of aneurysm, stenosis or thrombosis. Atherosclerotic calcification of the bilateral carotid siphons with less than 50% stenos is noted. There is persistent origin of the right LOBBY CONCIERGE. Dural venous: Grossly unremarkable. Other: None. IMPRESSION: 1. No large vessel occlusion or high-grade stenosis in the arteries of the head and neck. No aneurysm is identified.
[2024-12-10] MEDS: losartan 50mg tablet PO SCH (17:50)
--- NOTE | 2024-12-10 20:00 | RADIOLOGY REPORT ---
PROCEDURE: MR MRI HEAD INDICATION: Rule out posterior circulation strokes EXAM DATE: 12/10/2024 04:59 PM COMPARISON: CT CT HEAD on DOS: 12/09/24 TECHNIQUE: MRI of the brain without intravenous contrast. FINDINGS: Diffusion weighted images of the brain demonstrate no evidence of acute infarction. There is no evidence of intracranial hemorrhage, infarct, extra-axial collection, mass effect, midli ne shift, herniation or hydrocephalus. Minimal chronic white matter microvascular ischemic change. Mi ld ventricular and sulcal enlargement related to mild cerebral volume loss. Visualized paranasal sinuses and mastoid air cells are clear. Soft tissues and osseous structures ar e unremarkable. IMPRESSION: No acute intracranial abnormality.
[2024-12-10] MEDS: BIOTIN 5000 MG PO SCH (21:00)
[2024-12-11 04:56] VITALS: BP_SYST 138; BP_SYST 139; BP_SYST 147; BP_DIAS 52; BP_DIAS 71; BP_DIAS 75; PULSE 65; PULSE 93; PULSE 99
[2024-12-11 06:00] VITALS: BP 138/52; PULSE 77; RESP 15; TEMP 97.4; O2SAT 98
[2024-12-11 06:31] LABS: BASOPHILS # (AUTO) 0.1 X10'3 (0-0.2); BASOPHILS % (AUTO) 1.1 % (0-1); EOSINOPHILS # (AUTO) 0.4 X10'3 (0-0.9); EOSINOPHILS % (AUTO) 7.4 % (0-6); HEMATOCRIT 39.7 % (35.0-45.0); HEMOGLOBIN 13.5 g/dl (12.0-16.0); LYMPHOCYTES % (AUTO) 38.8 % (21-51); MEAN CORPUSCULAR HEMOGLOBIN 29.7 PG (27.0-31.0); MEAN CORPUSCULAR HGB CONC 33.9 g/dL (33.0-36.5); MEAN CORPUSCULAR VOLUME 87.5 FL (78-98); MEAN PLATELET VOLUME 8.6 FL (7.4-10.4); MONOCYTES # (AUTO) 0.5 X10'3 (0-0.9); MONOCYTES % (AUTO) 9.9 % (2-12); NEUTROPHILS # (AUTO) 2.2 X10'3 (1.8-7.7); NEUTROPHILS % (AUTO) 42.8 % (42-75); PLATELET COUNT 213 X10'3 (140-440); RED BLOOD COUNT 4.54 X10'6 (4.20-5.60); RED CELL DISTRIBUTION WIDTH 13.9 % (11.5-14.5); WHITE BLOOD COUNT 5.2 X10'3 (4.5-11.0)
[2024-12-11 06:52] LABS: ALBUMIN 3.4 G/DL (3.4-5.0); ANION GAP 7 (8-16); BLOOD UREA NITROGEN 10 MG/DL (7-18); BUN/CREATININE RATIO 13.7 (10.0-20.0); CALCIUM 8.8 MG/DL (8.5-10.1); CHLORIDE 110 MMOL/L (99-107); CREATININE 0.73 MG/DL (0.40-0.90); GLUCOSE 148 MG/DL (70-104); MAGNESIUM 2.1 MG/DL (1.5-2.4); POTASSIUM 3.8 MMOL/L (3.5-5.1); SODIUM 144 MMOL/L (135-145); TOTAL CARBON DIOXIDE 26.7 MMOL/L (24-32); eCRCL 52 ML/MIN; eGFR 76 ML/MIN
[2024-12-11] MEDS: pantoprazole 40mg Tablet.DR PO SCH (08:01)
[2024-12-11 10:00] VITALS: BP 137/55; PULSE 81; RESP 15; TEMP 98.3; O2SAT 96
[2024-12-11] MEDS ORDERED: LOSA50TA64 PO (12:34)
[2024-12-11] MEDS ORDERED: MECL-226 PO (12:34)
[2024-12-11] MEDS ORDERED: SULF1TAB48 PO (15:49)
--- NOTE | 2024-12-11 16:10 | DISCHARGE SUMMARY-Residence ---
Discharge Summary Providers to CC Resident Creating Document: MADINA GALVANCARLOSLATONIA AGUILAR CC: MINI SANTOYO MD ~ Discharge Summary Admission Diagnosis: Syncope Hospital Course DATE OF ADMISSION: 12/09/2024 DATE OF DISCHARGE: 12/11/2024 Discharge Diagnosis\Comment: Noncardiac chest pain, resolved Pre-syncope, likely secondary to UTI UTI, likely cystitis Dizzy spells/Vertigo ACS ruled out Ejkol-Suaribqdf-Jxjbv syndrome ruled out Posterior circulation strokes ruled out Orthostatic hypotension ruled out Long standing history of hearing loss HTN Type 2 DM Hypertension Hypothyroidism Status post partial thyroidectomy Operations\Procedures: None Consultants: None Complications: None Condition on DC: Stable New Medications: Sulfamethoxazole/Trimethoprim (Bactrim 400-80 Mg Tablet) 400 Mg-80 Mg Tablet 1 TAB PO Q12H for 5 Days, #10 TAB Losartan Potassium (Losartan Potassium) 50 Mg Tablet 50 MG PO DAILY for 30 Days, #30 TAB Meclizine HCl (Meclizine HCl) 12.5 Mg Tablet 25 MG PO HS for 30 Days, #30 TAB Take as needed for dizziness Continued Medications: Ascorbic Acid (Vitamin C With Jayde Hips) 250 Mg Tablet 3 TAB PO Biotin (Biotin) 5,000 Mcg Tab.rapdis 1 TAB PO TID, TAB 0 Refills Cholecalciferol (Vitamin D3) (Vitamin D3) 1,250 Mcg Capsule 1000 MCG PO DAILY, CAP 0 Refills Cinnamon Bark (Cinnamon) Unknown Strength Capsule Unknown Dose PO DAILY Flaxseed (Flaxseed Oil) 1,000 Mg Capsule 1 CAP PO DAILY, CAP 0 Refills [foccus factor] () 3 TAB PO DAILY Irma Root (Irma Root) 550 Mg Capsule 3 TAB PO DAILY Glimepiride (Glimepiride) 2 Mg Tablet 1 TAB PO DAILY Glucosamine HCl/Chondr Valladares A Na (Cidaflex Tablet) Unknown Strength Tablet Unknown Dose PO DAILY, TAB 0 Refills L.acidop,Rebel,Lac,Rha/B.lac,Dontrell (Advanced Probiotic Capsule) 625 Mg Capsule 1 TAB PO DAILY Metformin HCl (Metformin HCl) 1,000 Mg Tablet 1 TAB PO BID Niacin* (Niacin Timed Release*) 500 Mg Capsule 300 MG DAILY, CAP Omeprazole (Omeprazole) 20 Mg Capsule.dr 1 CAP PO DAILY [potassium otc] () 1 TAB PO DAILY Prasterone (Dhea) (Dhea) Unknown Strength Capsule Unknown Dose PO DAILY, CAP 0 Refills Red Yeast Rice (Red Yeast Rice) Unknown Strength Capsule Unknown Dose PO DAILY Discharge Summary: Patient was admitted with the following HPI: An 84-year-old female with past medical history of type 2 DM presented to the ED with chest pain, dizzy spells and weakness over the last two weeks. Patient states that this morning she started to have substernal chest pain with a severity of 7/10, sharp in character, no radiation, no increase in chest pain with inspiration. Patient went to yoga and could not do her exercise, felt weak and therefore went to the emergency department. This chest pain has been on and off, does not vary with exertion or rest patient denies associated diaphoresis, shortness of breath, palpitations. Patient also had dizziness described as a black out when she stands up since one week, feels like the room is spinning around her, not associated with nausea vomitings, hearing loss, imbalance or headaches. Patient denies loss of consciousness or falls. Patient denies lower abdominal pain, burning micturition, increased frequency of urination. Hospital course: Patient was admitted for evaluation of chest pain and presyncope. Patient underwent thorough workup including MRI of the brain, echocardiogram, head/neck CTA, head CT, all within normal limits. Patient however, did have a positive urinalysis with a positive culture for pansensitive Klebsiella, which could have been the culprit of her symptoms. Patient was started on IV Rocephin and IV fluids. She had a satisfactory hospital course with resolution of symptoms and where she remained hemodynamically stable. She will be discharged home on oral antibiotics for UTI. She will follow up with the patient with ENT for further evaluation of her hearing loss and dizzy spells. Laboratory Tests Test 12/09/24 16:08 12/09/24 17:25 12/09/24 17:46 12/09/24 18:01 Urine Specimen Description Cln catch midstream Urine Color Yellow Urine Clarity Cloudy Urine pH 6.0 Urine Specific [place] <=1.005 Urine Protein Negative mg/dl Urine Glucose (UA) Negative mg/dl Urine Ketones Negative mg/dl Urine Occult Blood Trace-intact Urine Nitrite Negative Urine Bilirubin Negative Urine Urobilinogen 0.2 E.U/dL Urine Leukocyte Esterase Moderate Urine RBC 0-2 /HPF Urine WBC 10-20 /HPF Urine WBC Clumps Few /HPF Urine Squamous Epithelial Cells Few /LPF Urine Bacteria 4+ /HPF Urine Culture Indicated Indicated Volume Urine Centrifuged 10 ml Urine Comment Glucometer 125 mg/dl Troponin I High Sensitivity 8 ng/L Troponin I High Sens Percent Delta 14 % Troponin I Hi Sens Absolute Change 1 ng/L Lactic Acid Level 1.9 MMOL/L Test 12/09/24 21:28 12/10/24 04:47 12/10/24 07:31 12/10/24 12:20 Glucometer 158 mg/dl 168 mg/dl 164 mg/dl White Blood Count 6.8 X10'3 Red Blood Count 4.61 X10'6 Hemoglobin 13.4 g/dl Hematocrit 40.0 % Mean Corpuscular Volume 86.8 FL Mean Corpuscular Hemoglobin 29.1 PG Mean Corpuscular Hemoglobin Concent 33.5 g/dL Red Cell Distribution Width 13.9 % Platelet Count 226 X10'3 Mean Platelet Volume 8.2 FL Neutrophils (%) (Auto) 52.2 % Lymphocytes (%) (Auto) 30.7 % Monocytes (%) (Auto) 9.9 % Eosinophils (%) (Auto) 6.0 % Basophils (%) (Auto) 1.2 % Neutrophils # (Auto) 3.6 X10'3 Lymphocytes # (Auto) 2.1 X10'3 Monocytes # (Auto) 0.7 X10'3 Eosinophils # (Auto) 0.4 X10'3 Basophils # (Auto) 0.1 X10'3 CBC Comment Sodium Level 144 MMOL/L Potassium Level 4.1 MMOL/L Chloride Level 108 MMOL/L Carbon Dioxide Level 27.6 MMOL/L Anion Gap 8 Blood Urea Nitrogen 11 MG/DL Creatinine 0.87 MG/DL Estimated GFR/1.73 m2 62 ML/MIN BUN/Creatinine Ratio 12.6 Glucose Level 149 MG/DL Calcium Level 9.0 MG/DL Magnesium Level 2.1 MG/DL Albumin 3.6 G/DL Triglycerides Level 99 MG/DL Cholesterol Level 144 MG/DL LDL Cholesterol 78 MG/DL HDL Cholesterol 52 MG/DL Cholesterol/HDL Ratio 2.8 Chemistry Comments Test 12/10/24 17:32 12/10/24 21:13 12/11/24 05:42 12/11/24 07:58 Glucometer 147 mg/dl 146 mg/dl 165 mg/dl White Blood Count 5.2 X10'3 Red Blood Count 4.54 X10'6 Hemoglobin 13.5 g/dl Hematocrit 39.7 % Mean Corpuscular Volume 87.5 FL Mean Corpuscular Hemoglobin 29.7 PG Mean Corpuscular Hemoglobin Concent 33.9 g/dL Red Cell Distribution Width 13.9 % Platelet Count 213 X10'3 Mean Platelet Volume 8.6 FL Neutrophils (%) (Auto) 42.8 % Lymphocytes (%) (Auto) 38.8 % Monocytes (%) (Auto) 9.9 % Eosinophils (%) (Auto) 7.4 % Basophils (%) (Auto) 1.1 % Neutrophils # (Auto) 2.2 X10'3 Lymphocytes # (Auto) 2.0 X10'3 Monocytes # (Auto) 0.5 X10'3 Eosinophils # (Auto) 0.4 X10'3 Basophils # (Auto) 0.1 X10'3 CBC Comment Sodium Level 144 MMOL/L Potassium Level 3.8 MMOL/L Chloride Level 110 MMOL/L Carbon Dioxide Level 26.7 MMOL/L Anion Gap 7 Blood Urea Nitrogen 10 MG/DL Creatinine 0.73 MG/DL Estimated GFR/1.73 m2 76 ML/MIN BUN/Creatinine Ratio 13.7 Glucose Level 148 MG/DL Calcium Level 8.8 MG/DL Magnesium Level 2.1 MG/DL Albumin 3.4 G/DL Chemistry Comments Imaging: MRI of brain: No acute intracranial abnormality. Head/neck CTA: No large vessel occlusion or high-grade stenosis in the arteries of the head and neck. No aneurysm is identified. Stress test: Normal left ventricular size, wall motion, and function, without e vidence of infarction or of myocardium at ischemic risk. The left ventricular ejection fraction is 71%. Echocardiogram: Normal LV size and wall thickness. Overall systolic function is normal. LVEF is 65-70%. RV is normal size and function. The left atrium size is normal. Trileaflet AV appears mildly sclerotic without stenosis. No insufficiency. Mild mitral annular calcification without stenosis. Trace regurgitation. The tricuspid valve is normal in structure with mild regurgitation. Normal pericardium. No effusion. Head CT: No evidence of acute intracranial hemorrhage, mass effect or hydr ocephalus. Chest xray: No acute intrathoracic process. Discharge physical exam: Vital Signs Date Time Temp Pulse Resp B/P (MAP) Pulse Ox O2 Delivery O2 Flow Rate FiO2 5/23/25 11:44 Room Air 12/11/24 10:00 98.3 81 15 137/55 (82) 96 12/09/24 15:14 4.0 General: Alert, awake, oriented, not in acute distress HEENT: PERRLA, EOMI, no icterus, pallor, lymphadenopathy, carotid bruit, prominent clavicle present. Respiratory system: Bilateral vesicular breath sounds heard, no adventitious breath sounds CVS: S1-S2 heard, no murmurs/rubs/gallop GI: Soft, nontender, no organomegaly, no guarding/rigidity, bowel sounds present Neuro: No focal neurological deficits present Extremities: No edema cyanosis clubbing Musculoskeletal: No deformities Skin: Warm and dry Patient will be discharged with the following recommendations: Please follow up with your PCP and discuss referral to ENT doctor We started a new medication for your blood pressure Please review the side effects of all your supplements and adjust if necessary Please return to the ED if any concerning symptoms *Problems/Diagnosis: (1) UTI (urinary tract infection) Status: Acute (2) Syncope Status: Resolved (3) Chest pain Status: Acute Total Time Spent on D/C: > 30 Minutes Date of Service: December 11, 2024 Billing Provider: MINI SANTOYO MD Problem Qualifiers (1) UTI (urinary tract infection): Urinary tract infection type: acute cystitis Hematuria presence: without hematuria Qualified Codes: N30.00 - Acute cystitis without hematuria (2) Syncope: Syncope type: unspecified Qualified Codes: R55 - Syncope and collapse CARLOS GONZALES December 11, 2024 15:58
== END 2024-12-11 13:20 | disposition home or self-care (01) | DRG 690 ==
LOC: ER 15:00 → ED HOLD 17:22 → ORTHO 4S 21:40
PROVIDERS: ADMIT Family Medicine; ATTEND Family Medicine
PROC: 4A02XM4 Measurement of Cardiac Total Activity, External Approach (ICD-10-PCS; principal; 2024-12-10)
PROC: 3E033HZ Introduction of Radioactive Substance into Peripheral Vein, Percutaneous Approach (ICD-10-PCS; 2024-12-10)
PROC: B3251ZZ Computerized Tomography (CT Scan) of Bilateral Common Carotid Arteries using Low Osmolar Contrast (ICD-10-PCS; 2024-12-10)
PROC: B32G1ZZ Computerized Tomography (CT Scan) of Bilateral Vertebral Arteries using Low Osmolar Contrast (ICD-10-PCS; 2024-12-10)
PROC: B32R1ZZ Computerized Tomography (CT Scan) of Intracranial Arteries using Low Osmolar Contrast (ICD-10-PCS; 2024-12-10)
PROC: B3281ZZ Computerized Tomography (CT Scan) of Bilateral Internal Carotid Arteries using Low Osmolar Contrast (ICD-10-PCS; 2024-12-10)
DX: N30.00 Acute cystitis without hematuria (principal); R07.89 Other chest pain; E11.9 Type 2 diabetes mellitus without complications; E78.5 Hyperlipidemia, unspecified; F41.9 Anxiety disorder, unspecified; E03.9 Hypothyroidism, unspecified; I10 Essential (primary) hypertension; Z88.8 Allergy status to other drugs, medicaments and biological substances; Z90.49 Acquired absence of other specified parts of digestive tract
CPT/HCPCS: 36415; 70450; 70496; 70498; 70551; 71045; 78452; 80048; 80053; 80061; 81001; 82948; 83036; 83605; 83735; 83880; 84443; 84484; 85025; 85610; 85730; 87040; 87077; 87081; 87088; 87186; 93005; 93017; 93306; 96365; 96372; 97161; 97530; 99285; A6250; A9500; G0378; J0280; J0696; J1644; J1815; J2785; J7030; J8597; Q9967